=== PATIENT | female | born 1980 | race Caucasian/White ===

== ENCOUNTER 2017-06-23 12:03 | Emergency (ER) | payer OTHER ==
[~2017-06-23] VITALS: Ht 174.8 cm; Wt 158.8 kg
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
[2017-06-23] MEDS ORDERED: ACETAMINOPHEN 325 MG TABLET. PO ONE (12:30)
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
[2017-06-23 13:57] VITALS: BP 152/88
== END 2017-06-23 14:04 | disposition home or self-care (01) ==
LOC: ER 12:03
DX: M54.2 Cervicalgia (principal); M54.6 Pain in thoracic spine; V43.52XA Car driver injured in collision with other type car in traffic accident, initial encounter; Y93.I9 Activity, other involving external motion; Y92.488 Other paved roadways as the place of occurrence of the external cause; Y99.8 Other external cause status
CPT/HCPCS: 70450; 71101; 72125; 73010; 99284-25